=== PATIENT | male | born 1980 | race Hispanic/Latino ===

== ENCOUNTER 2018-04-09 14:33 | Emergency (ER) | payer OTHER ==
[2018-04-09 14:39] VITALS: RESP 18
[2018-04-09] MEDS ORDERED: Sodium Chloride 0.9% 1,000 ML IV STA (15:07)
[2018-04-09 16:05] LABS: BASO % 0.7 % (0.0-2.0); EOS # 0.1 K/uL (0.0-0.7); EOS % 1.6 % (0.0-4.0); HEMOGLOBIN 14.4 g/dL (12.0-18.0); LYMPH # 1.5 K/uL (1.0-4.3); LYMPH % 26.3 % (20.0-40.0); MEAN CELL VOLUME 89.1 fl (80.0-94.0); MEAN CORPUSCULAR HEMOGLOBIN 29.8 pg (27.0-31.0); MEAN CORPUSCULAR HGB CONC 33.5 g/dL (33.0-37.0); MEAN PLATELET VOLUME 8.9 fl (7.2-11.7); MONO # 0.4 K/uL (0.0-0.8); MONO % 7.6 % (0.0-10.0); NEUT # 3.5 K/uL (1.8-7.0); NEUT % 63.8 % (50.0-75.0); NRBC % 0.1 % (0.0-0.0); RBC 4.82 Mil/uL (4.40-5.90); RED CELL DISTRIBUTION WIDTH 12.9 % (11.5-14.5); WHITE BLOOD COUNT 5.5 K/uL (4.8-10.8)
[2018-04-09 16:14] LABS: URINE BILIRUBIN NEGATIVE (NEGATIVE); URINE BLOOD NEGATIVE (NEGATIVE); URINE CLARITY CLEAR (Clear); URINE COLOR YELLOW (YELLOW); URINE GLUCOSE (UA) NEG (NEGATIVE); URINE LEUKOCYTE ESTERASE NEG Leu/uL (Negative); URINE PROTEIN NEGATIVE (NEGATIVE); URINE UROBILINOGEN 0.2-1.0 mg/dL (0.2-1.0)
[2018-04-09 16:16] LABS: ALB/GLOB RATIO 1.5 (1.0-2.1); ALBUMIN 4.4 g/dL (3.5-5.0); ALT/SGPT 38 U/L (21-72); AST/SGOT 25 U/L (17-59); BLOOD UREA NITROGEN 24 mg/dl (9-20); CALCIUM 9.2 mg/dL (8.4-10.2); GFR NON-AFRICAN AMERICAN > 60
--- NOTE | 2018-04-09 18:43 | ED PDOC ---
HPI: Abdomen Time Seen by Provider: 04/09/18 14:41 Chief Complaint (Nursing): Abdominal Pain History Per: Patient History/Exam Limitations: no limitations Onset/Duration Of Symptoms: Days Outside of [place] travel?: No Current Symptoms Are (Timing): Better Location Of Pain/Discomfort: RLQ Quality Of Discomfort: Sharp, Burning Associated Symptoms: denies: Fever, Chills, Nausea, Vomiting, Diarrhea Exacerbating Factors: None Alleviating Factors: None Last Bowel Movement: Yesterday Additional Complaint(s): 37 yo m with no PMHx presents after expisode of cramping right sided abdominal pain last night. Pt states pain was severe but went away on its own after a couple hours. During this time pt noticed that he had one episode of urination with pelvic discomfort, small amount of blood in the urine, and frothy urine. Pt states there was no pain today and is denying pain medications. Pt came at the urging of his . Past Medical History Vital Signs: Last Vital Signs Temp 98.3 F 04/09/18 14:37 Pulse 64 04/09/18 14:37 Resp 18 04/09/18 14:37 BP 132/78 04/09/18 14:37 Pulse Ox 98 04/09/18 14:37 - Medical History PMH: No Chronic Diseases - Surgical History Surgical History: Appendectomy - Family History Family History: States: No Known Family Hx - Allergies Allergies/Adverse Reactions: Allergies Allergy/AdvReac Type Severity Reaction Status Date / Time No Known Allergies Allergy Verified 04/09/18 14:39 Review of Systems Constitutional: Negative for: Fever, Chills Eyes: Negative for: Pain Cardiovascular: Negative for: Chest Pain Respiratory: Negative for: Cough, Shortness of Breath Gastrointestinal: Negative for: Nausea, Vomiting, Diarrhea Genitourinary Male: Positive for: Dysuria, Hematuria (see HPI) Skin: Negative for: Rash, Lesions Neurological: Negative for: Weakness, Numbness Physical Exam - Physical Exam Head Exam: Positive for: ATRAUMATIC, NORMAL INSPECTION Skin: Positive for: Normal Color, Warm, Dry Eye Exam: Positive for: Normal appearance Neck: Positive for: Normal Cardiovascular/Chest: Positive for: Regular Rate, Rhythm, Chest Non Tender Respiratory: Positive for: Normal Breath Sounds Gastrointestinal/Abdominal: Positive for: Soft. 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 Workup for renal stones vs UTI shows elevated BUN and pt given 1L of IV fluids. CT and pelvis shows no obvious renal pathology but possible phleboliths in bladder. Pt to follow up with primary medical doctor and given referral for urology. No indication for Flomax at this time. Informed of mildly enlarged prostate and will discuss with PMD. Disposition - Clinical Impression Clinical Impression: Renal stones, BPH without urinary obstruction - Disposition Disposition: Routine/Home Disposition Time: 18:47 Condition: IMPROVED Additional Instructions: Follow up with primary medical doctor and urologist to discuss enlarged prostate and the possibility of renal stones. Take Motrin or Tylenol for pain. Return to the emergency department if symptoms worsen or if new symptoms develop. Instructions: Kidney Stones (DC), Renal Colic (DC) Forms: [employer] (Romanian) Print Language: MALDIVIAN
[2018-04-09 19:04] VITALS: BP 127/72; PULSE 75; TEMP 97.9
--- NOTE | 2018-04-10 08:11 | CT ---
Date of service: 04/09/2018 PROCEDURE: CT Abdomen and Pelvis without intravenous contrast HISTORY: rule out stones COMPARISON: None. TECHNIQUE: Technique. Contrast dose: Radiation dose: Total exam DLP = 430.04 mGy-cm. This CT exam was performed using one or more of the following dose reduction techniques: Automated exposure control, adjustment of the mA and/or kV according to patient size, and/or use of iterative reconstruction technique. FINDINGS: LOWER THORAX: Unremarkable. LIVER: Unremarkable. No gross lesion or ductal dilatation. GALLBLADDER AND BILE DUCTS: Unremarkable. PANCREAS: Unremarkable. No gross lesion or ductal dilatation. SPLEEN: Unremarkable. ADRENALS: Unremarkable. No mass. KIDNEYS AND URETERS: Unremarkable. No hydronephrosis. No solid mass. VASCULATURE: Unremarkable. No aortic aneurysm. No aortic atherosclerotic calcification or mural plaque present. BOWEL: Unremarkable. No obstruction. No gross mural thickening. APPENDIX: Unremarkable. Normal appendix. PERITONEUM: Unremarkable. No free fluid. No free air. LYMPH NODES: Unremarkable. No enlarged lymph nodes. BLADDER: Unremarkable. REPRODUCTIVE: Unremarkable. BONES: No acute fracture. OTHER FINDINGS: None. IMPRESSION: Unremarkable non contrast enhanced CT of the abdomen and pelvis.
[2018-04-13 23:28] VITALS: O2SAT 98
--- NOTE | 2018-04-19 06:11 | CARD ---
APPROVED REPORT Date of service: 04/09/2018 EKG Measurement Heart [id number] SD [id number] <Conclusion> Sinus bradycardia Minimal voltage criteria for LVH, may be normal variant Borderline ECG
== END 2018-04-09 19:00 | disposition home or self-care (01) ==
LOC: H.ER 14:33
DX: N20.0 Calculus of kidney (principal); N40.0 Benign prostatic hyperplasia without lower urinary tract symptoms
CPT/HCPCS: 74176; 80053; 81003; 85025; 93005; 96360; 99283; J7030